=== PATIENT | male | born 1985 | race Caucasian/White ===

== ENCOUNTER 2018-07-14 07:00 | Inpatient (IN) | payer OTHER ==
[2018-07-14] VITALS (8 sets, daily range): BP systolic 104–116; BP diastolic 58–69
[~2018-07-14] VITALS: Ht 188 cm; Wt 117.9 kg
--- NOTE | 2018-07-14 07:19 | NUR ---
URINE SPECIMEN COLLECTED SENT TO LABS
--- NOTE | 2018-07-14 07:28 | NUR ---
BIB SELF WITH . AAOX4. NO ACUTE DISTRESS. C/O RIGHT LOWER QUADRANT ABDOMINAL PAIN X 36 HOURS 09/05. MD AT BEDSIDE FOR EVAL. AWAITING ORDERS.
[2018-07-14] MEDS ORDERED: ONDANSETRON HCL/PF 4 MG/2 ML VIAL IVP ONE (07:30)
[2018-07-14] MEDS ORDERED: IV NS 0.9% 1,000 ML BAG IV ONE (07:30)
[2018-07-14] MEDS ORDERED: KETOROLAC TROMETHAMINE INJ 30 MG/ML VIAL IV ONE (07:30)
--- NOTE | 2018-07-14 07:35 | NUR ---
IV ACCESS OBTAINED ON R AC 18G. BLOOD DRAWN AND GIVEN TO FACULTY INSTRUCTOR AT BEDSIDE
[2018-07-14] MEDS ORDERED: ONDANSETRON HCL/PF 4 MG/2 ML VIAL ONE (07:38)
[2018-07-14] MEDS ORDERED: KETOROLAC TROMETHAMINE INJ 30 MG/ML VIAL ONE (07:38)
[2018-07-14 07:44] LABS: BASOPHILS % (AUTO) 0.2 % (0.0-2.0); EOSINOPHILS % (AUTO) 1.3 % (0.0-6.0); HEMATOCRIT 39 % (39-51); HEMOGLOBIN 13.2 g/dL (13.5-17.5); LYMPHOCYTES # (AUTO) 0.8 /CMM (0.8-4.8); LYMPHOCYTES % (AUTO) 8.4 % (20.0-44.0); MEAN CORPUSCULAR HGB CONC 34 g/dl (31.0-36.0); MEAN CORPUSCULAR VOLUME 90 fL (80-96); MONOCYTES # (AUTO) 1.3 /CMM (0.1-1.30); MONOCYTES % (AUTO) 12.5 % (2.0-12.0); NEUTROPHILS # (AUTO) 7.8 /CMM (1.8-8.9); NEUTROPHILS % (AUTO) 77.6 % (43.0-81.0); PLATELET COUNT (AUTO) 169 /CMM (150-450); RED BLOOD CELL COUNT(AUTO) 4.32 MIL/uL (4.5-6.0); WHITE BLOOD COUNT (AUTO) 10.1 K/uL (4.3-11.0)
[2018-07-14 07:45] LABS: APPEARANCE,URINE CLEAR (CLEAR); BILIRUBIN,URINE NEGATIVE (NEGATIVE); BLOOD, URINE NEGATIVE Ery/uL (NEGATIVE); COLOR,URINE YELLOW (YELLOW); KETONES,URINE NEGATIVE (NEGATIVE); LEUKOCYTE ESTERASE ,URINE NEGATIVE (NEGATIVE); NITRITE, URINE NEGATIVE (NEGATIVE); PROTEIN,URINE TRACE mg/dl (NEGATIVE); UGLUCOSE NEGATIVE (NEGATIVE); UROBILINOGEN,URINE 0.2 EU/dL (0.2)
[2018-07-14 07:47] LABS: RBC,URINE NONE SEEN /HPF (0-2); WBC,URINE NONE SEEN /HPF (0-3)
[2018-07-14 07:48] LABS: BACTERIA,URINE None seen /HPF (None Seen); SQUAMOUS EPITHELIAL CELL,UR Few /HPF (None Seen)
[2018-07-14 07:50] LABS: CALCIUM, SERUM 8.9 mg/dL (8.5-10.1); POTASSIUM 3.8 mmol/L (3.5-5.1)
--- NOTE | 2018-07-14 07:50 | NUR ---
PT WHEELED TO RADIOLOGY VIA [employer]
[2018-07-14 07:56] LABS: ALBUMIN 3.7 g/dL (3.4-5.0); BILIRUBIN,DIRECT 0.1 mg/dL (0.0-0.2); BILIRUBIN,TOTAL 0.4 mg/dL (0.2-1.0); TOTAL PROTEIN, SERUM 6.9 g/dL (6.4-8.2)
[2018-07-14] MEDS ORDERED: PIPERACILLIN /TAZOBACTAM 3.375 G in IV D5W 50 ML IV ONE (08:00)
--- NOTE | 2018-07-14 08:03 | NUR ---
BACK FROM RADIOLOGY
[2018-07-14] MEDS ORDERED: PIPERACILLIN /TAZOBACTAM 3.375 G VIAL IV ONE (08:07)
--- NOTE | 2018-07-14 08:14 | NUR ---
DR KM MCFARLAND, TALKED TO DR MADISON.
--- NOTE | 2018-07-14 08:42 | NUR ---
DR. BARBOUR CALLED, TO PREPARE CONSENT FOR LAPRASCOPIC APPENDECTOMY, POSSIBLE OPEN. SX IS SCHEDULED AT 11:30.
--- NOTE | 2018-07-14 08:52 | NUR ---
REPORT GIVEN TO HUSEYINRN PT TO RM [id number]
--- NOTE | 2018-07-14 09:15 | NUR ---
MS state manager Note Patient currently awake, resting in bed. Semi-Fowlers position, supine. Alert and oriented x3, able to make needs known. No complaints of shortness of breath or abdominal pain at this time. Respirations even and unlabored on room air, no acute distress noted. Peripheral IV to the right AC 18 gauge, intact, patent and saline locked. Skin assessment completed, no issues noted upon admission. Personal belongings inventoried and accounted for upon arrival to unit. Room and unit orientation given verbally. Updated patient on current plan of care and safety measures. Safety and fall precautions in place: bed in lowest and locked position, side rails up x2, bed alarm on, call light and personal possessions within reach. Room well lit and floor clear of items. Reminded patient of safety measures, verbalized understanding. Patient currently clean, dry and comfortable. Family present at bedside. Will continue to monitor and intervene as needed.
--- NOTE | 2018-07-14 09:30 | NUR ---
MS RN Note Patient prepared for surgical procedure this morning with Dr. Camacho, consent forms signed. Pre-operative checklist completed, patient NPO. Will continue to monitor.
[2018-07-14] MEDS ORDERED: IV NS 0.9% 1,000 ML IV PRN (09:31)
[2018-07-14] MEDS ORDERED: MAG HYDROX/AL HYDROX/SIMETH 30 ML UDC PO PRN (10:00)
[2018-07-14] MEDS ORDERED: MAGNESIUM HYDROXIDE 30 ML UDC PO PRN (10:00)
[2018-07-14] MEDS ORDERED: HYDROMORPHONE INJ 2 MG/ML DISP.SYRIN IV PRN (10:00)
[2018-07-14] MEDS: PANTOPRAZOLE 40 MG VIAL IV SCH (10:00)
[2018-07-14] MEDS ORDERED: ONDANSETRON HCL/PF 4 MG/2 ML VIAL IVP PRN (10:00)
[2018-07-14] MEDS ORDERED: TEMAZEPAM 15 MG CAPSULE PO PRN (10:30)
--- NOTE | 2018-07-14 11:00 | NUR ---
MS director airport operations Note Patient transported to OR via bed safely with staff for procedure. Vital signs stable, report given to staff accordingly. Family accompanied patient, no personal items left in the room.
[2018-07-14] MEDS ORDERED: MIDAZOLAM HCL 2 MG/2ML VIAL ONE (11:21)
[2018-07-14] MEDS ORDERED: FENTANYL PF 100MCG/2ML AMPUL ONE (11:21)
[2018-07-14] MEDS ORDERED: ROCURONIUM BROMIDE 50 MG/5 ML ONE ×2 (11:22→12:39)
[2018-07-14] MEDS ORDERED: LIDOCAINE HCL/PF 1% 30 ML SDV ONE (11:24)
[2018-07-14] MEDS ORDERED: BUPIVACAINE MPF 0.5% W/EPI INJ 30 ML VIAL ONE (11:24)
[2018-07-14] MEDS ORDERED: PIPERACILLIN /TAZOBACTAM 3.375 G in IV D5W 50 ML IV SCH (12:00)
[2018-07-14] MEDS ORDERED: HYDROMORPHONE 1 MG/1 ML DISP.SYRIN ONE (13:34)
[2018-07-14] MEDS ORDERED: MORPHINE SULFATE INJ 2 MG/ML DISP.SYRIN IV PRN (14:00)
--- NOTE | 2018-07-14 14:00 | NUR ---
MS fermentation operator Note Patient transported back to room from OR via bed safely with staff. Vital signs stable upon arrival, will monitor per protocol. Hand-off report received from staff accordingly. Post-operative orders noted. Family present at bedside. Will continue to monitor.
[2018-07-14] MEDS ORDERED: IV D5/0.45 NACL W/20 MEQ KCL 1L IV PRN ×2 (14:30)
[2018-07-14] MEDS: PIPERACILLIN /TAZOBACTAM 3.375 G in IV D5W 100 ML IV SCH ×2 (14:37→21:16)
--- NOTE | 2018-07-14 18:43 | NUR ---
MS RN Closing Note Patient currently awake, resting in bed. Semi-Fowlers position, supine. Alert and oriented x3, able to make needs known. No complaints of shortness of breath or abdominal pain at this time. Respirations even and unlabored on room air, no acute distress noted. Peripheral IV to the right AC 18 gauge, intact, patent and infusing fluids as ordered. Vital signs stable post-operatively. Updated patient on current plan of care and safety measures. Safety and fall precautions in place: bed in lowest and locked position, side rails up x2, bed alarm on, call light and personal possessions within reach. Room well lit and floor clear of items. Reminded patient of safety measures, verbalized understanding. Patient currently clean, dry and comfortable. Family present at bedside. Will endorse to YOVANI Norman for continuity of care.
--- NOTE | 2018-07-14 19:10 | NUR ---
MS RN NOTE RECEIVED PT IN STABLE CONDITION A&O X4, ABLE TO MAKE NEEDS KNOWN. PT IN BED WITH FAMILY AT BEDSIDE. NO SIGNS OF SOB OR DISTRESS. PT C/O ABD PAIN S/P LAP NILESH, WILL GIVE PAIN MEDICATION ORDERED. IV PATENT AND INTACT WITH IVF INFUSING, TOLERATING WELL. ALL CURRENT NEEDS MET. SAFETY PRECAUTIONS IN PLACE: BED LOW, LOCKED, UPPER RAILS UP, AND CALL LIGHT WITHIN REACH. WILL CONT TO MONITOR. Addendum: 07/15/18 at 0628 by SHERRIE SHELTON RN PT IS S/T LAP APPENDECTOMY NO LAP NILESH.
[2018-07-14] MEDS: oxyCODONE/APAP (5/325 MG) 1 UDTAB TABLET PO PRN (19:34)
--- NOTE | 2018-07-14 19:34 | NUR ---
MS RN NOTE PRN PERCOCET GIVEN FOR PAIN 10 IN ABD., WILL CONT TO MONITOR.
[2018-07-14] MEDS: ACETAMINOPHEN 325 MG TABLET PO PRN (20:42)
--- NOTE | 2018-07-14 20:42 | NUR ---
MS RN NOTE PRN TYLENOL 650 MG GIVEN FOR FEVER 100.9, WILL CONT TO MONITOR.
--- NOTE | 2018-07-14 22:14 | NUR ---
MS RN NOTE NOTIFIED MISTY ROBERT OF RECHECKED TEMP OF 100.1, NEW VERBAL ORDER FOR INCENTIVE SPIROMETER GIVEN. NEW ORDER CARRIED OUT. WILL CONT TO MONITOR PT.
[2018-07-15 01:00] VITALS: BP 99/55
--- NOTE | 2018-07-15 01:30 | NUR ---
MS RN NOTE REASSESSED PT TEMP. NOTED WITH 99.0. WILL CONT TO MONITOR.
[2018-07-15] MEDS: oxyCODONE/APAP (5/325 MG) 1 UDTAB TABLET PO PRN ×5 (02:27→15:56)
--- NOTE | 2018-07-15 02:27 | NUR ---
MS RN NOTE PRN PERCOCET GIVEN FOR PAIN 7/10 LOCATED IN THE ABD. ENCOURAGED PT TO USE INCENT. SPIROMETER. WILL CONT TO MONITOR.
[2018-07-15] MEDS: ACETAMINOPHEN 325 MG TABLET PO PRN (02:54)
--- NOTE | 2018-07-15 03:30 | NUR ---
MS RN NOTE ATTEMPTED TO REPOSITION PT PER POST-OP PROTOCOL. PT WAS ABLE TO SIT UP ON THE SIDE OF THE BED FOR 5 MIN AND STATED THAT HE WOULD LIKE TO LAY BACK DOWN D/T PAIN. WILL CONT TO MONITOR.
--- NOTE | 2018-07-15 04:45 | NUR ---
MS RN NOTE LEFT A MESSAGE FOR MISTY ROBERT IN REGARDS TO PT TEMP OF 101.2. WAITING FOR RETURN CALL.
--- NOTE | 2018-07-15 05:02 | NUR ---
MS RN NOTE NOTIFIED MISTY ROBERT OF PT TEMP OF 101.2. NO NEW ORDERS AT THIS TIME.
[2018-07-15] MEDS: PIPERACILLIN /TAZOBACTAM 3.375 G in IV D5W 100 ML IV SCH (05:16)
--- NOTE | 2018-07-15 06:21 | NUR ---
MS RN NOTE PT IN STABLE CONDITION A&O X4, ABLE TO MAKE NEEDS KNOWN. PT IN BED, RESTING EASILY AROUSABLE WHEN NAME IS CALLED. NO SIGNS OF SOB OR DISTRESS. PAIN MANAGED ORDERED BY MD. IV PATENT AND INTACT WITH IVF INFUSING, TOLERATING WELL. ALL CURRENT NEEDS MET. SAFETY PRECAUTIONS IN PLACE: BED LOW, LOCKED, UPPER RAILS UP, AND CALL LIGHT WITHIN REACH. WILL CONT TO MONITOR AND ENDORSE TO NEXT SHIFT FOR SHRAVAN.
[2018-07-15 07:26] LABS: BASOPHILS % (AUTO) 0.1 % (0.0-2.0); HEMATOCRIT 35 % (39-51); HEMOGLOBIN 12.1 g/dL (13.5-17.5); LYMPHOCYTES # (AUTO) 0.6 /CMM (0.8-4.8); LYMPHOCYTES % (AUTO) 7.6 % (20.0-44.0); MEAN CORPUSCULAR HGB CONC 34 g/dl (31.0-36.0); MEAN CORPUSCULAR VOLUME 90 fL (80-96); MONOCYTES # (AUTO) 0.9 /CMM (0.1-1.30); MONOCYTES % (AUTO) 10.9 % (2.0-12.0); NEUTROPHILS # (AUTO) 6.6 /CMM (1.8-8.9); NEUTROPHILS % (AUTO) 81.4 % (43.0-81.0); PLATELET COUNT (AUTO) 130 /CMM (150-450); RED BLOOD CELL COUNT(AUTO) 3.91 MIL/uL (4.5-6.0); WHITE BLOOD COUNT (AUTO) 8.1 K/uL (4.3-11.0)
[2018-07-15 07:42] LABS: CALCIUM, SERUM 8.3 mg/dL (8.5-10.1); MAGNESIUM 1.8 mg/dL (1.8-2.4); PHOSPHORUS 2.4 mg/dL (2.5-4.9); POTASSIUM 3.6 mmol/L (3.5-5.1)
[2018-07-15 08:00] VITALS: BP 106/64
[2018-07-15] MEDS: PANTOPRAZOLE 40 MG VIAL IV SCH (09:27)
[2018-07-15] MEDS ORDERED: K PHOS NEUTRAL 250 MG TABLET PO ONE (13:00)
--- NOTE | 2018-07-15 16:40 | NUR ---
RN MS NOTES DISCHARGE Patient remains on room air, no sob noted. Patient stated that pain was relieved by pain medications but comes back quick. Patient has good gait when he walks. Patient's belonging is with him, paper works for discharge signed and has no questions about the discharge instructions. Patient also has the original copy of his prescription.Patient is taken home by his and brother.
== END 2018-07-15 16:35 | disposition home or self-care (01) | DRG 343 ==
LOC: ER 07:02 → MED 08:43
PROVIDERS: ADMIT Nurse Practitioner Acute Care; ATTEND Nurse Practitioner Acute Care
PROC: 0DTJ4ZZ Resection of Appendix, Percutaneous Endoscopic Approach (ICD-10-PCS; principal; 2018-07-14)
DX: K35.30 Acute appendicitis with localized peritonitis, without perforation or gangrene (principal); E66.9 Obesity, unspecified; R73.9 Hyperglycemia, unspecified; F17.210 Nicotine dependence, cigarettes, uncomplicated; Z68.33 Body mass index [BMI] 33.0-33.9, adult
CPT/HCPCS: 36415; 71045-TC; 80048-TC; 80061-TC; 80076-TC; 81000-TC; 83690-TC; 83735-TC; 84100-TC; 85025-TC; 86850-TC; 87070-TC; 87081-TC; 87186-TC; 88305-TC; 88311-TC; A6402; C9113; G0378; J1100; J1170; J1885; J2250; J2405; J2543; J2704; J2710; J3010; J3480; J3490; J7030; J7060